=== PATIENT | male | born 1955 | race Caucasian/White ===

== ENCOUNTER 2023-08-15 17:45 | Emergency (ER) | payer OTHER, MEDICAID ==
[~2023-08-15] VITALS: Ht 170.2 cm; Wt 80.0 kg
[~2023-08-15 17:45] MED LIST: ALPR2TAB6; DIAZ10TA3 PO; DIGO0.2570; DOCU-209 PO; HYDR-531 PO; KEP500T PO; LISI20TA56 PO; LORA-622 PO; RIVA20TA PO
[2023-08-15 18:26] VITALS: BP 150/65; PULSE 70; RESP 18; O2SAT 99
== END 2023-08-15 18:20 | disposition left against medical advice (07) ==
LOC: ER 17:45 → EDBD 17:45 → ER 18:20
DX: T50.991A Poisoning by other drugs, medicaments and biological substances, accidental (unintentional), initial encounter (principal); Z53.21 Procedure and treatment not carried out due to patient leaving prior to being seen by health care provider; Y92.89 Other specified places as the place of occurrence of the external cause